=== PATIENT | male | born 1995 | race Caucasian/White ===

== ENCOUNTER → 2017-09-24 12:59 | Outpatient (CLI) | payer OTHER, SELFPAY ==
--- NOTE | 2017-09-24 13:10 | XR_ITS ---
XR chest 2V HISTORY: ITS.REASON: chest pressure ORDERING PHYSICIAN: You Dodd MD PATIENT AGE: 22 years COMPARISON: 10/31/2016 FINDINGS: The cardiomediastinal silhouette and pulmonary vascularity are within normal limits. There is some increased density along the injury aspect of the chest inferiorly similar to 10/31/2016 and may represent some pleural thickening The lungs are clear without infiltrates, suspicious nodules, or pleural effusions. No acute bony abnormalities. IMPRESSION: No change with no acute finding
== END ==
PROVIDERS: Visit Provider Internal Medicine
DX: R00.0 Tachycardia, unspecified (principal)
CPT/HCPCS: 71046

== ENCOUNTER → 2018-08-05 12:23 | Outpatient (CLI) | payer OTHER, SELFPAY ==
--- NOTE | 2018-08-05 12:27 | CA_ITS ---
PROCEDURE: 2-D M-mode and color Doppler study INDICATIONS FOR THE TEST: Chest pain + COPD Heart Murmur Tobacco Smoking+ Palpitations Fatigue Syncope Edema Hypertension Diabetes Mellitus Rheumatic Fever SOB+GODOY Obesity Hyperlipidemia Family History HD Additional History PERICARDIECTOMY 10/2015 PATIENT INFORMATION HEIGHT: 72 WEIGHT:196 GENDER: Male B/P:131/84 2-D/M-MODE INTERPRETATION: 2-D MEASUREMENTS OBSERVED VALUES IN CMS Right Ventricular Dimension (RVDd) 2.4 Interventricular Septum (Thickness)(IVsd) 0.6 Left Ventricular Internal Dimensions(LVIDd) 5.8 Left Ventricular Posterior Wall (Thickness)(LVPWd) 0.8 Aortic Root 2.5 Aortic Cusp Separation 2.0 Left Atrial Dimensions (LAD) 3.0 2D 1. Left atrium is normal size, left ventricle is normal size, there is no concentric left ventricular hypertrophy, visually estimated ejection fraction is normal 55%. 2. Right atrium and right ventricle are normal size and contractility. 3. The aortic, mitral and tricuspid valvular grossly normal. 4. The pulmonic valve is poorly visualized. 5. No significant pericardial effusion noted. DOPPLER INTERROGATION: Doppler interrogation of the aortic, mitral and tricuspid valvular presence of mild mitral and tricuspid regurgitation, tricuspid regurgitation jet velocity is inadequate for calculation of the right ventricular systolic pressure, diastolic parameters are within normal range. Inferior vena cava is not well visualized. CONCLUSION: 1. Normal left ventricular size, preserved left ventricular systolic function, visually estimated ejection fraction 55% with no regional wall motion abnormality, diastolic parameters are within normal range. 2. Mild mitral and tricuspid regurgitation 3. No significant pericardial effusion noted.
== END ==
PROVIDERS: Visit Provider Physician Assistant
DX: R06.02 Shortness of breath (principal); R07.9 Chest pain, unspecified; Z98.890 Other specified postprocedural states
CPT/HCPCS: 93306

== ENCOUNTER 2020-06-01 17:10 | Emergency (ER) | payer OTHER, SELFPAY ==
--- NOTE | 2020-06-01 17:05 | ECG_ITS ---
APPROVED REPORT Exam: Resting ECG HR:91 bpm ECG Measurements Heart Rate 91 AXES MD 112 P 53 QRSd 78 QRS 57 QT 342 T 53 QTc 420 Conclusion Sinus rhythm with marked sinus arrhythmia with junctional escape complexes Otherwise normal ECG Electronically signed by : Clarence Olson, 06/02/2020 17:32:04
[2020-06-01 17:11] VITALS: BP 126/80; PULSE 111; RESP 16; TEMP 37.1; O2SAT 100; BMI 22.1
--- NOTE | 2020-06-01 17:15 | XR_ITS ---
PROCEDURE: XR CHEST PORTABLE CLINICAL HISTORY: soa Shortness of air COMPARISON: CR CXR2V XR chest 2V from 09/24/2017 CR CXR2V XR chest 2V from 03/14/2018 CR XR CHEST 2V from 01/01/[address] ANGIO CHEST from 01/01/2019 FINDINGS: The cardiomediastinal silhouette and pulmonary vascularity are within normal limits. There is minimal blunting of the left CP angle. No acute infiltrates apparent.. No acute bony abnormalities. IMPRESSION: Minimal blunting of the left CP angle which could be due to small effusion. Dictated by: Francisco Javier Oneal MD 06/01/2020 18:03 Francisco Javier Oneal MD in [place] 06/01/2020 18:03
[2020-06-01 17:18] VITALS: BP 127/72; PULSE 84; RESP 20; O2SAT 100
--- NOTE | 2020-06-01 17:32 | HMH.EDCP ---
ED Disposition Clinical Impression: Atypical chest pain, Pre-syncope Disposition: Home, Self-Care Condition on Discharge: Good Referrals: PCP,No [Primary Care Provider] - - Critical Care Critical Care Time: No Attestation: On 06/01/20, the high probability of a clinically significant, sudden or life threatening deterioration of the following system(s) required my full and direct attention, intervention and personal management. The time I documented below is in addition to time spent performing reported procedures but includes the following listed in this critical care notation. Medical Decision Making - Medical Records Medical records reviewed: Yes: I reviewed the patient's medical records. - Lizandro Inquiry Pt receiving controlled substance: No Vital Signs: 06/01/20 17:11 06/01/20 17:18 Temperature 98.7 F Temperature Source Oral Pulse Rate 84 Pulse Rate [Left Radial] 111 H Respiratory Rate 16 20 Blood Pressure 127/72 Blood Pressure [Right Arm] 126/80 Blood Pressure Mean [Right Arm] 95 Blood Pressure Source Automatic Cuff Blood Pressure Source [Right Arm] Automatic Cuff Blood Pressure Position Sitting Blood Pressure Position [Right Arm] Sitting 02 Sat by Pulse Oximetry 100 100 Oxygen Delivery Method Room Air Room Air - Lab Data Lab Results 06/01/20 17:13: WBC 12.3 H, RBC 5.14, Hgb 15.3, Hct 45.7, MCV 88.9, MCH 29.8, MCHC 33.5, RDW 12.4, Plt Count 227, MPV 8.4, Neut % (Auto) 58.8, Lymph % (Auto) 30.8, Foard % (Auto) 7.8, Eos % (Auto) 1.9, Baso % (Auto) 0.7, Neut # (Auto) 7.2, Lymph # (Auto) 3.8, Foard # (Auto) 1.0, Eos # (Auto) 0.2, Baso # (Auto) 0.1 06/01/20 17:13: D-Dimer 0.51 H 06/01/20 17:13: Sodium 138, Potassium 3.9, Chloride 103, Carbon Dioxide 24, Anion Gap 14.9, BUN 12, Creatinine 0.90, Estimated Creat Clear 123, Estimated GFR 105, Est GFR ( Amer) 127, Glucose 105 H, Calcium 10.0, Troponin I < 0.01 Result diagrams: 06/01/20 17:13 06/01/20 17:13 Orders (Tests/Meds): ED MEDICATIONS Generic Name Dose Route Start Last Admin Trade Name Freq PRN Reason Stop Dose Admin Sodium Chloride 1,000 mls @ 999 mls/hr 06/01/20 17:15 06/01/20 17:31 Sod Chlor 0.9% 1000ml Bag IV 06/01/20 18:15 999 mls/hr .Q1H1M ANA Administration ORDERS Category Date Time Status Troponin I Q3H Lab 06/01/20 20:15 Ordered Troponin I Q3H Lab 06/01/20 23:15 Ordered Medical Decision Narrative: 24-year-old male presents after presyncopal event. He is in no acute distress nontoxic-appearing comfortable in the bed with normal neurological exam. Very atypical for myocardial infarction EKG shows no evidence of ischemia. No evidence of hypertrophic cardiomyopathy, preexcitation, Brugada or prolonged QT. He is PERC positive with tachycardia however otherwise low risk for pulmonary embolism D-dimer obtained. Atypical presentation for aortic dissection. Chest x-ray and labs have been ordered giving IV fluids as well Patient feeling better after IV fluids. Negative per years criteria for pulmonary embolism. Chest x-ray otherwise without large pneumothorax or pneumonia. Bedside ultrasound performed that showed no pericardial effusion ejection fraction was normal. Patient otherwise stable for discharge with return precautions Chest Pain HPI - General Chief Complaint: Chest Pain Stated Complaint: chest pain Time Seen by Provider: 06/01/20 17:15 Mode of Arrival: Ambulatory Limitations: No Limitations Description of Symptoms (Recalled from ER Triage Doc. 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 States he became soa and sweaty and started with chest pain - History of Present Illness HPI narrative: 24 yo Male presents with sudden onset dizziness nausea chest pain. He says he was working in the back of the truck got hot and felt dizzy. He then had left-sided nonradiating chest pain. Was not severe or radiating to his back. He did not
[2020-06-01 17:39] LABS: Basophils # 0.1 K/mm3 (0-0.2); Basophils % 0.7 % (0.1-2.0); Chloride 103 mmol/L (98-107); Eosinophils # 0.2 K/mm3 (0.0-0.4); Eosinophils % 1.9 % (0.1-12.0); Hematocrit 45.7 % (42.0-52.0); Hemoglobin 15.3 g/dL (14.1-18.0); Lymphocytes # 3.8 K/mm3 (0.7-4.5); Lymphocytes % 30.8 % (10-50); Mean Corpuscular HGB Conc 33.5 g/dL (31.8-35.4); Mean Corpuscular Hemoglobin 29.8 pg (27.0-31.2); Mean Corpuscular Volume 88.9 fl (80-94); Mean Platelet Volume 8.4 fl (7.4-10.4); Monocytes % 7.8 % (1.7-9.3); Neutrophils # 7.2 K/mm3 (1.8-7.8); Neutrophils % 58.8 % (37.0-80.0); Platelet Count 227 K/mm3 (142-424); Potassium 3.9 mmoL/L (3.5-5.1); Red Blood Count 5.14 M/mm3 (4.60-6.20); Red Cell Distribution Width 12.4 % (11.5-17.5); Sodium 138 mmol/L (136-145); White Blood Count 12.3 K/mm3 (4.8-10.8)
[2020-06-01 17:42] LABS: Anion Gap 14.9 mEq/L (5-15); Blood Urea Nitrogen 12 mg/dl (9-20); Carbon Dioxide 24 mmol/L (22.0-30.0); Creatinine Clearance Estimated 123 mL/min (50-200); Estimated Glomerular Filt Rate 105 ml/min (>60); GFR (African American) 127 ML/MIN (>60)
[2020-06-01 17:43] LABS: Glucose 105 mg/dl (74-100)
[2020-06-01 17:57] LABS: Troponin I < 0.01 ng/ml (0.00-0.034)
[2020-06-01 18:00] VITALS: BP 124/67; PULSE 81; O2SAT 98
[2020-06-01 18:08] LABS: D-Dimer 0.51 ug/mL (0.0-0.5)
[2020-06-01 18:30] VITALS: BP 118/75; PULSE 66; O2SAT 99
[2020-06-01 18:48] VITALS: BP 118/75; PULSE 66; RESP 18; TEMP 37.1; O2SAT 99
== END 2020-06-01 18:49 | disposition home or self-care (01) ==
PROVIDERS: Emergency Provider Emergency Medicine
DX: R07.89 Other chest pain (principal); R55 Syncope and collapse; I10 Essential (primary) hypertension; F17.210 Nicotine dependence, cigarettes, uncomplicated
CPT/HCPCS: 71045; 80048; 84484; 85025; 85378; 93005; 96365; 99282

== ENCOUNTER 2021-01-28 16:39 | Emergency (ER) | payer OTHER, SELFPAY ==
[2021-01-28 16:40] VITALS: BP 112/71; PULSE 75; RESP 16; TEMP 36.6; O2SAT 97; BMI 23.7
--- NOTE | 2021-01-28 17:20 | HMH.EDWNDL ---
ED Disposition Clinical Impression: Closed head injury Qualifiers: Encounter type: initial encounter Qualified Code(s): S09.90XA - Unspecified injury of head, initial encounter Scalp abrasion Qualifiers: Encounter type: initial encounter Qualified Code(s): S00.01XA - Abrasion of scalp, initial encounter Disposition: Home, Self-Care Condition on Discharge: Good Instructions: DI for Closed Head Injury Referrals: Provider,Referral, MD [Primary Care Provider] - - Critical Care Critical Care Time: No Attestation: On 01/28/21, the high probability of a clinically significant, sudden or life threatening deterioration of the following system(s) required my full and direct attention, intervention and personal management. The time I documented below is in addition to time spent performing reported procedures but includes the following listed in this critical care notation. Medical Decision Making - Medical Records Medical records reviewed: Yes: I reviewed the patient's medical records. - Lizandro Inquiry Pt receiving controlled substance: No Vital Signs: 01/28/21 16:40 Temperature 98 F Temperature Source Oral Pulse Rate [Radial] 75 Respiratory Rate 16 Blood Pressure [Right Arm] 112/71 Blood Pressure Mean [Right Arm] 84 02 Sat by Pulse Oximetry 97 Oxygen Delivery Method Room Air Medical Decision Narrative: 25-year-old male presenting with a small abrasion to the top of his head. There is no active bleeding at this time. Patient does not require suture or staple repair. Does not meet imaging criteria for the head or cervical spine. Symptoms consistent with closed head injury. Patient to follow-up with PCP in 48 hours. Given strict return precautions. Verbalized understanding. 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 by RN): to ed per pvt car states a post hole driver license examiner fell on head. denies any loc. pt alert and oriented x 3. superficial lac noted to top of scalp parietal area. denies nausea, vomiting, dizziness - History of Present Illness HPI narrative: Is a 25-year-old male presented to the emergency department with a laceration to his scalp. The patient states that he was using a post acute care registered nurse when it fell and hit him on the head. On the top of his head. He had some bleeding instantly afterwards. The patient did not lose consciousness during the event. He placed some pressure dressing and the bleeding did stop. Patient planing of some mild headache. Denies any change in vision or focal weakness. No chest pain or shortness of breath. Abdominal pain or vomiting. No diarrhea. No neck pain. No other injuries were sustained. Patient is up-to-date on tetanus. - Related Data Previous Rx's Medication Instructions Recorded Mupirocin [Bactroban 2% Ointment 1 applicatio TP TID 7 Days #1 tube 09/23/18 22gm tube] cephALEXin [cephALEXin 500mg 500 mg PO Q6H 10 Days #40 cap 09/23/18 capsule] Diclofenac Sodium [Diclofenac 75mg 75 mg PO BID 10 Days #20 tab 01/01/19 Tab] predniSONE [Prednisone 20mg 20 mg PO BID 5 Days #10 tab 01/01/19 Tab] Allergies Allergy/AdvReac Type Severity Reaction Status Date / Time No Known Allergies Allergy Verified 08/05/18 11:27 [facility] History - Hepatitis A Screen Drug use history?: No High risk sexual behaviors?: No History of sexually transmitted infection?: No Currently employed?: No Childcare worker?: No Do you have indoor plumbing?: Yes Do you have electricity?: Yes Attestation statement:: This patient has been screened for Hepatitis A risk factors. I have reviewed the patient's past medical history: Yes Medical History: Reports:: Hypertension Denies:: Cancer, Diabetes Mellitus Type 1, Diabetes Mellitus Type 2
[2021-01-28 17:31] VITALS: BP 121/74; PULSE 78; RESP 16; TEMP 36.6; O2SAT 98
== END 2021-01-28 17:32 | disposition home or self-care (01) ==
PROVIDERS: Emergency Provider Emergency Medicine
DX: S00.01XA Abrasion of scalp, initial encounter (principal); F17.210 Nicotine dependence, cigarettes, uncomplicated; W22.8XXA Striking against or struck by other objects, initial encounter; Y92.89 Other specified places as the place of occurrence of the external cause
CPT/HCPCS: 99281

== ENCOUNTER 2021-05-22 22:37 | Emergency (ER) | payer OTHER, SELFPAY ==
--- NOTE | 2021-05-22 22:35 | ECG_ITS ---
APPROVED REPORT Exam: Resting ECG HR:100 bpm ECG Measurements Heart Rate 100 AXES MI 124 P 45 QRSd 84 QRS 37 QT 325 T 24 QTc 382 Conclusion SINUS TACHYCARDIA ABNORMAL RHYTHM ECG UNCONFIRMED REPORT Electronically signed by : Clarence Olson MD 05/25/2021 16:21:17
[2021-05-22 22:37] VITALS: BP 145/92; PULSE 93; RESP 18; TEMP 36.9; O2SAT 99; BMI 24.4
--- NOTE | 2021-05-22 22:44 | XR_ITS ---
PROCEDURE INFORMATION: Exam: XR Chest Exam date and time: 05/22/2021 10:46 PM Age: 25 years old Clinical indication: Pain; Left-sided; Prior surgery; Surgery type: Heart SX 5 years ago; Additional info: Chest pain TECHNIQUE: Imaging protocol: XR of the chest. Views: 2 views. COMPARISON: CR XR CHEST PORTABLE 06/01/2020 5:26 PM FINDINGS: Lungs: Unremarkable. No consolidation. Pleural spaces: No pleural effusion. No pneumothorax. Heart/Mediastinum: Normal heart size. Bones/joints: Unremarkable. IMPRESSION: No acute findings.
[2021-05-22 22:52] LABS: Basophils # 0.3 K/mm3 (0-0.2); Basophils % 2.4 % (0.1-2.0); Eosinophils # 0.2 K/mm3 (0.0-0.4); Eosinophils % 1.6 % (0.1-12.0); Hemoglobin 15.3 g/dL (14.1-18.0); Lymphocytes # 3.4 K/mm3 (0.7-4.5); Lymphocytes % 29.1 % (10-50); Mean Corpuscular HGB Conc 33.3 g/dL (31.8-35.4); Mean Corpuscular Hemoglobin 30.6 pg (27.0-31.2); Mean Platelet Volume 8.7 fl (7.4-10.4); Monocytes # 0.9 K/mm3 (0.1-1.0); Monocytes % 7.5 % (1.7-9.3); Neutrophils # 6.9 K/mm3 (1.8-7.8); Neutrophils % 59.5 % (37.0-80.0); Platelet Count 235 K/mm3 (142-424); Red Cell Distribution Width 12.8 % (11.5-17.5); White Blood Count 11.6 K/mm3 (4.8-10.8)
--- NOTE | 2021-05-22 22:52 | PC.NURSE ---
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
[2021-05-22 23:00] VITALS: BP 134/84; PULSE 96; RESP 27; O2SAT 97
[2021-05-22 23:02] LABS: Alanine Aminotransferase 21 U/L (12-78); Albumin Level 4.6 g/dl (3.5-5.0); Alkaline Phosphatase 48 U/L (38-126); Anion Gap 12.9 mEq/L (5-15); Aspartate Amino Transferase 33 U/L (17-59); Bilirubin,Direct 0.2 mg/dl (0.0-0.4); Bilirubin,Indirect 0.5 mg/dL (0.0-0.9); Bilirubin,Total 0.7 mg/dl (0.2-1.3); Bilirubin,Unconjugated 0.5 mg/dL (0.0-1.1); Blood Urea Nitrogen 16 mg/dl (9-20); Calcium 9.2 mg/dl (8.4-10.2); Carbon Dioxide 26 mmol/L (22.0-30.0); Chloride 103 mmol/L (98-107); Creatinine Clearance Estimated 146 mL/min (50-200); Estimated Glomerular Filt Rate 104 ml/min (>60); GFR (African American) 125 ML/MIN (>60); Glucose 121 mg/dl (74-100); Lipase 56 U/L (23-300); Potassium 3.9 mmoL/L (3.5-5.1); Sodium 138 mmol/L (136-145); Total Protein,Serum 7.7 g/dl (6.3-8.2)
[2021-05-22 23:19] LABS: Procalcitonin 0.043 ng/mL (0.0-2.0)
[2021-05-22 23:26] LABS: Troponin I < 0.01 ng/ml (0.00-0.034)
[2021-05-22 23:30] VITALS: BP 143/82; PULSE 101; RESP 20; O2SAT 97
[2021-05-22 23:30] LABS: Erythrocyte Sedimentation Rate 30 mm/hr (0-15)
[2021-05-22 23:32] LABS: C-Reactive Protein 37.5 mg/L (0-4)
--- NOTE | 2021-05-22 23:35 | HMH.EDCP ---
ED Disposition Clinical Impression: Chest pain Qualifiers: Chest pain type: unspecified Qualified Code(s): R07.9 - Chest pain, unspecified Disposition: Home, Self-Care Condition on Discharge: Good Instructions: DI for Atypical Chest Pain Additional Instructions: see pcp for follow up Referrals: Provider,Referral, [Primary Care Provider] - - Critical Care Critical Care Time: No Attestation: On 05/22/21, the high probability of a clinically significant, sudden or life threatening deterioration of the following system(s) required my full and direct attention, intervention and personal management. The time I documented below is in addition to time spent performing reported procedures but includes the following listed in this critical care notation. Medical Decision Making - Medical Records Medical records reviewed: Yes: I reviewed the patient's medical records. - Lizandro Inquiry Pt receiving controlled substance: No Vital Signs: 05/22/21 22:37 05/22/21 23:00 05/22/21 23:30 Temperature 98.4 F Temperature Source Oral Pulse Rate 96 H 101 H Pulse Rate [Left Radial] 93 H Respiratory Rate 18 27 H 20 Blood Pressure 134/84 143/82 H Blood Pressure [Right Arm] 145/92 H Blood Pressure Mean [Right Arm] 109 Blood Pressure Position [Right Arm] Sitting 02 Sat by Pulse Oximetry 99 97 97 Oxygen Delivery Method Room Air Room Air Room Air 05/23/21 00:00 Temperature Temperature Source Pulse Rate 90 Pulse Rate [Left Radial] Respiratory Rate 23 Blood Pressure 131/79 Blood Pressure [Right Arm] Blood Pressure Mean [Right Arm] Blood Pressure Position [Right Arm] 02 Sat by Pulse Oximetry 96 Oxygen Delivery Method Room Air - Lab Data Lab results reviewed: Yes: I reviewed the patient's lab results. Lab Results 05/22/21 20:41: WBC 11.6 H, RBC 5.00, Hgb 15.3, Hct 46.0, MCV 92.0, MCH 30.6, MCHC 33.3, RDW 12.8, Plt Count 235, MPV 8.7, Neut % (Auto) 59.5, Lymph % (Auto) 29.1, Miner % (Auto) 7.5, Eos % (Auto) 1.6, Baso % (Auto) 2.4 H, Neut # (Auto) 6.9, Lymph # (Auto) 3.4, Miner # (Auto) 0.9, Eos # (Auto) 0.2, Baso # (Auto) 0.3 H 05/22/21 20:41: ESR 30 H 05/22/21 20:41: Sodium 138, Potassium 3.9, Chloride 103, Carbon Dioxide 26, Anion Gap 12.9, BUN 16, Creatinine 0.90, Estimated Creat Clear 146, Estimated GFR 104, Est GFR ( Amer) 125, Glucose 121 H, Calcium 9.2, Total Bilirubin 0.7, Direct Bilirubin 0.2, Conjugated Bilirubin 0.0, Indirect Bilirubin 0.5, Unconjugated Bilirubin 0.5, AST 33, ALT 21, Alkaline Phosphatase 48, Troponin I < 0.01, Total Protein 7.7, Albumin 4.6, Procalcitonin 0.043 05/22/21 20:41: Lipase 56 05/22/21 20:41: C-Reactive Protein 37.5 H Result diagrams: 05/22/21 20:41 05/22/21 20:41 Orders (Tests/Meds): ED MEDICATIONS Discontinued Medications Generic Name Dose Route Start Last Admin Trade Name Marlo PRN Reason Stop Dose Admin Aspirin 324 mg 05/22/21 22:46 05/22/21 22:52 Aspirin 81mg Chewable Tablet PO 05/22/21 22:47 324 mg ONCE ONE Administration Iopamidol 70 ml 05/22/21 23:56 05/22/21 23:57 Iopamidol-370 (76%);100ml Bottle IV 05/22/21 23:57 70 ml ONCE ONE Administration Ketorolac Tromethamine 30 mg 05/22/21 22:54 05/22/21 23:01 Ketorolac 30mg/Ml Vial IV 05/22/21 22:55 30 mg ONCE ONE Administration Methylprednisolone Sodium Succinate 125 mg 05/22/21 22:54 05/22/21 23:01 Methylprednisolone Sod Succ 125mg Vial IV 05/22/21 22:55 125 mg ONCE ONE Administration Sodium Chloride 50 ml 05/22/21 23:56 05/22/21 23:57 0.9 % Sodium Chloride 50 Ml Vial IV 05/22/21 23:57 50 ml ONCE ONE Administration Sodium Chloride 10 ml 05/22/21 23:56 05/22/21 23:57 Sodium Chloride 0.9% 10ml Syr (Rad Only) IV 05/22/21 23:57 10 ml ONCE ONE Administration ORDERS Category Date Time Status Troponin I Q3H Lab 05/23/21 01:45 Ordered Troponin I Q3H Lab 05/23/21 04:45 Ordered - Radiology Data #1 Image(s): Ch
--- NOTE | 2021-05-22 23:37 | CT_ITS ---
PROCEDURE INFORMATION: Exam: CTA Chest With Contrast Exam date and time: 05/22/2021 11:47 PM Age: 25 years old Clinical indication: Pain; Shortness of breath; Left-sided; Prior surgery; Additional info: R/O pe TECHNIQUE: Imaging protocol: Computed tomographic angiography of the chest with contrast. 3D rendering (Not supervised by radiologist): MIP and/or 3D reconstructed images were created by the technologist. Radiation optimization: All CT scans at this facility use at least one of these dose optimization techniques: automated exposure control; mA and/or kV adjustment per patient size (includes targeted exams where dose is matched to clinical indication); or iterative reconstruction. Contrast material: ISOVUE; Contrast volume: 70 ml; Contrast route: INTRAVENOUS (IV); COMPARISON: CT ANGIO CHEST 01/01/2019 5:35 PM FINDINGS: Pulmonary arteries: No pulmonary embolus is seen. Artifactual heterogeneity of left lower lobe subsegmental arteries due to motion. Aorta: No thoracic aortic aneurysm. Lungs: Mild dependent atelectasis at the left lung base. No consolidation. No evidence of pneumonia. Calcified right lower lobe granuloma. There are a few scattered noncalcified nodules in the right lower lobe measuring up to 0.4 cm in size, stable since prior exam and presumed benign. No follow-up recommended. Pleural spaces: No pneumothorax. No pleural effusion. Heart: Heart size within normal limits. Trace pericardial fluid without significant effusion. No appreciable coronary calcification. Lymph nodes: Few calcified right hilar and subcarinal lymph nodes compatible with prior granulomatous disease. No frankly enlarged mediastinal lymph nodes by CT criteria. Bones/joints: Posterior disc-osteophyte ridge at T11-T12 with associated mild spinal canal and neural foraminal stenosis. No acute fracture. Soft tissues: Unremarkable. IMPRESSION: 1. No evidence of pulmonary embolus. 2. Mild left basilar atelectasis. Otherwise, no acute finding within the thorax.
[2021-05-23] VITALS: BP 131/79; PULSE 90; RESP 23; O2SAT 96
[2021-05-23 00:30] VITALS: BP 123/77; PULSE 88; RESP 22; O2SAT 97
--- NOTE | 2021-05-23 00:56 | PC.NURSE ---
PT REPORTS THAT HIS PAIN HAS IMPROVED. FAMILY REMAINS AT BEDSIDE. WCM.
[2021-05-23 01:00] VITALS: BP 128/77; PULSE 82; RESP 22; O2SAT 96
[2021-05-23 01:30] VITALS: BP 126/73; PULSE 75; RESP 23; O2SAT 97
[2021-05-23 01:41] VITALS: BP 125/77; PULSE 87; RESP 18; TEMP 36.7; O2SAT 96
== END 2021-05-23 01:46 | disposition home or self-care (01) ==
PROVIDERS: Emergency Provider Emergency Medicine
DX: R07.9 Chest pain, unspecified (principal); R06.02 Shortness of breath; I10 Essential (primary) hypertension; F17.210 Nicotine dependence, cigarettes, uncomplicated; Z79.52 Long term (current) use of systemic steroids; Z79.82 Long term (current) use of aspirin; Z79.899 Other long term (current) drug therapy; Z82.49 Family history of ischemic heart disease and other diseases of the circulatory system; Z81.2 Family history of tobacco abuse and dependence
CPT/HCPCS: 71046; 71275; 80048; 80076; 83690; 84145; 84484; 85025; 85651; 86140; 93005; 96374; 96375; 99285; Q9967

== ENCOUNTER 2021-06-23 08:25 | Emergency (ER) | payer OTHER, SELFPAY ==
[2021-06-23 08:26] VITALS: BP 146/74; PULSE 89; RESP 20; TEMP 36.8; O2SAT 96; BMI 27.1
--- NOTE | 2021-06-23 08:37 | XR_ITS ---
FINAL REPORT CLINICAL HISTORY: foot pain, struck log. dorsal foot pain. pt shielded. FINDINGS: RIGHT FOOT Three views were obtained. There is no acute fracture or dislocation. The joint spaces appear normal. No soft tissue abnormality is identified. There is an os peroneum. IMPRESSION: No acute process. Reviewed, Interpreted and Dictated by Mitch Arnold MD Transcribed by Mariel Stockton Authenticated by Mitch Arnold MD on 06/23/2021 10:01:02 AM [facility]
--- NOTE | 2021-06-23 08:41 | HMH.EDGENADL ---
ED Disposition Clinical Impression: Foot contusion Qualifiers: Encounter type: initial encounter Laterality: right Qualified Code(s): S90.31XA - Contusion of right foot, initial encounter Disposition: Home, Self-Care Condition on Discharge: Good Additional Instructions: Okay to take Tylenol, Motrin at home for pain. Bear weight as able, okay to use crutches to assist with ambulation. Return with new or concerning symptoms. Follow-up with your PCP. Referrals: Provider,Referral, [Primary Care Provider] - - Critical Care Critical Care Time: No Attestation: On 06/23/21, the high probability of a clinically significant, sudden or life threatening deterioration of the following system(s) required my full and direct attention, intervention and personal management. The time I documented below is in addition to time spent performing reported procedures but includes the following listed in this critical care notation. Medical Decision Making - Medical Records Medical records reviewed: Yes: I reviewed the patient's medical records. - Lizandro Inquiry Pt receiving controlled substance: No Vital Signs: 06/23/21 08:26 Temperature 98.2 F Temperature Source Oral Pulse Rate [Left Radial] 89 Respiratory Rate 20 Blood Pressure [Right Arm] 146/74 H Blood Pressure Mean [Right Arm] 98 Blood Pressure Source [Right Arm] Automatic Cuff Blood Pressure Position [Right Arm] Sitting 02 Sat by Pulse Oximetry 96 Oxygen Delivery Method Room Air Orders (Tests/Meds): ED MEDICATIONS Discontinued Medications Generic Name Dose Route Start Last Admin Trade Name Freq PRN Reason Stop Dose Admin Acetaminophen 1,000 mg 06/23/21 08:38 06/23/21 08:47 Acetaminophen 500mg Tab PO 06/23/21 08:39 1,000 mg ONCE ONE Administration Ibuprofen 400 mg 06/23/21 08:39 06/23/21 08:47 Ibuprofen 400 Mg Tablet PO 06/23/21 08:40 400 mg ONCE ONE Administration - Radiology Data #1 Image(s): Foot/Toes Image Reviewed: Yes I reviewed the patient's radiology results FINDINGS: RIGHT FOOT Three views were obtained. There is no acute fracture or dislocation. The joint spaces appear normal. No soft tissue abnormality is identified. There is an os peroneum. IMPRESSION: No acute process. Reviewed, Interpreted and Dictated by Mitch Arnold MD Transcribed by Mariel Stockton Authenticated by Mitch Arnold MD on 06/23/2021 10:01:[address] [facility] Medical Decision Narrative: 25-year-old male no prior past medical history presenting to the ED with right foot pain. Differential diagnoses include fracture/dislocation, sprain, metatarsal fracture, contusion, abrasion, Caban fracture. Given this work-up will include x-rays of the right foot. Labs, further imaging studies not currently indicated. Tylenol Motrin for pain. On exam patient has palpable DP/PT pulses, neurovascularly intact, mildly limited flexion and extension of the foot due to pain. X-ray of the right foot with no osseous abnormalities. Patient is able to bear weight however has pain with this, this point he is okay for discharge. Suspect contusion as the etiology of his pain, he was discharged with crutches. Discussed return precautions, he was amenable to this plan. General Adult HPI - General Stated complaint: AO fall 06/22 rt ankle pain Time Seen by Provider: 06/23/21 08:41 Mode of Arrival: Ambulatory Source of Information: Patient, Significant Other Limitations: No Limitations - History of Present Illness HPI narrative: 25-year-old male no prior past medical history who is presenting to the ED with right foot pain. Patient was chasing his dog last night when he accidentally ran into a log. He did not hit his head, no LOC. He does not take anything today for pain medication. He states that the dorsal aspect of his right foot is slightly swollen, he is tender over his fifth metatarsal and forefoot. He does not have any pain in his right
[2021-06-23 10:50] VITALS: BP 132/74; PULSE 78; RESP 16; TEMP 36.6; O2SAT 98
== END 2021-06-23 10:51 | disposition home or self-care (01) ==
PROVIDERS: Emergency Provider Emergency Medicine
DX: S90.31XA Contusion of right foot, initial encounter (principal); W01.198A Fall on same level from slipping, tripping and stumbling with subsequent striking against other object, initial encounter; I10 Essential (primary) hypertension; Z72.0 Tobacco use; F12.90 Cannabis use, unspecified, uncomplicated; Z86.79 Personal history of other diseases of the circulatory system
CPT/HCPCS: 73630; 99283

== ENCOUNTER 2021-12-01 09:30 | Emergency (ER) | payer OTHER, SELFPAY ==
--- NOTE | 2021-12-01 09:55 | XR_ITS ---
FINAL REPORT CLINICAL HISTORY: punched a truck FINDINGS: RIGHT HAND: 3 views of the right hand were obtained. There is no acute fracture or dislocation. Visualized joint spaces are normally aligned. There is dorsal hand soft tissue swelling. IMPRESSION: No acute bony abnormality. Reviewed, Interpreted and Dictated by Jose Zuluaga III, MD Transcribed by Kiya Reynoso Authenticated and [facility]
[2021-12-01 09:58] VITALS: BP 131/63; PULSE 80; RESP 16; TEMP 36.7; O2SAT 98; BMI 25.0
--- NOTE | 2021-12-01 10:13 | EXP.UTC ---
Discharge Plan Disposition Patient Disposition: Home, Self-Care Condition: Good Prescriptions Prescriptions: New ibuprofen [IBU] 800 mg tablet 800 mg PO Q8HP PRN (Reason: Moderate Pain) Qty: 30 0RF No Action cephalexin 500 MG capsule 500 mg PO Q6H 10 Days Qty: 40 0RF mupirocin 22 GM ointment 1 applicatio TP TID 7 Days Qty: 1 0RF prednisone 20 MG tablet 20 mg PO BID 5 Days Qty: 10 0RF diclofenac sodium 75 MG tablet,delayed release (DR/EC) 75 mg PO BID 10 Days Qty: 20 0RF Referrals Follow up/Referrals: Tee Jade MD [Staff Physician] - See instructions Provider,MD Fredy [Primary Care Provider] - See instructions Activity Restrictions/Add. Instructions Additional Instructions/Restrictions: Rest the extremity, apply ice for 15 minutes as tolerated three or four times per day, Wear the iris wrap for compression, Elevate the extremity as tolerated while you are resting. Take ibuprofen for pain. I sent in a prescription to your pharmacy. Follow up with Dr. Jade (orthopedics). Sometimes there can be fractures that don't show up well on the first set of x-rays. I put in a referral but you need to call his office and schedule an appointment. Follow up with your regular doctor. GO TO THE ER FOR ANY WORSENING SYMPTOMS Clinical Impressions Clinical Impression: Injury of hand, right, Striking against other stationary object, initial encounter Stand Alone Forms Stand Alone Forms: Work/School Release Instructions Patient Instructions: DI for Hand Injury Discharge ED Provider: Severo Guan [facility] General Stated complaint: RT hand pain, punched truck 12/01/21 9:00am Mode of Arrival: Ambulatory Source of Information: Patient Limitations: No Limitations Time Seen by Provider: 12/01/21 10:13 Description of Symptoms (Recalled from Triage Doc. by RN): pt comes in with right hand pain. pt punched a truck this am and now has a large knot on hand and is having pain. HEENT Symptoms (Recalled from RN notes): No Resp Symptoms (Recalled from RN notes): No Skin Symptoms (Recalled from RN notes): No MS Symptoms (Recalled from RN notes): Yes Functional Status (Recalled from RN notes): n/a History of Present Illness Provider Complaint: He states that he punched the side of his truck with his right hand this morning out of anger. he has had right hand pain since then. He denies any other injury. Related Data Previous Rx's Medication Instructions Recorded cephalexin 500 mg capsule 500 mg PO Q6H 10 days #40 caps 09/23/18 mupirocin 2 % topical ointment 1 applicatio TP TID 7 days #1 tube 09/23/18 diclofenac sodium 75 mg 75 mg PO BID 10 days #20 tabs 01/01/19 tablet,delayed release prednisone 20 mg tablet 20 mg PO BID 5 days #10 tabs 01/01/19 ibuprofen 800 mg tablet (IBU) 800 mg PO Q8HP PRN Moderate Pain 12/01/21 #30 tabs Allergies Allergy/AdvReac Type Severity Reaction Status Date / Time No Known Allergies Allergy Verified 12/01/21 10:01 Worker's Comp Is this a Worker's Comp case?: No PFSH PFSH Medical History Chest pain SOB (shortness of breath) Social History Smoking Status: Current every day smoker tobacco type: cigarettes packs per day: 1 second hand exposure: Yes alcohol intake: never substance use type: marijuana current occupational status: employed Travel in the last 8 weeks: None household members: significant other housing: house current occupation: [email or web address] current occupational exposures/hazards: No caffeine: Yes ROS Obtained: Yes All systems reviewed & no additional complaints except as documented Constitutional Constitutional: Denies chills and Denies fever(s) Integumentary/Breasts Skin/Breast: Denies redness, Denies rash and Denies wounds Neurologic Neurologic: Denies paresthesias Physical Exam General General appearance:
[2021-12-01 11:26] VITALS: BP 131/63; PULSE 80; RESP 16; TEMP 36.7
== END 2021-12-01 11:27 | disposition home or self-care (01) ==
PROVIDERS: Emergency Provider Nurse Practitioner Family
DX: S67.21XA Crushing injury of right hand, initial encounter (principal); R22.9 Localized swelling, mass and lump, unspecified; W22.09XA Striking against other stationary object, initial encounter
CPT/HCPCS: 73130; 99212; G0463

== ENCOUNTER 2024-01-27 18:09 | Emergency (ER) | payer MEDICAID, SELFPAY ==
[2024-01-27 18:40] VITALS: BP 124/74; PULSE 64; RESP 17; TEMP 36.9; O2SAT 98; BMI 28.0
--- NOTE | 2024-01-27 19:03 | ED_ITS ---
Discharge Plan Disposition Patient Disposition: Home, Self-Care Condition: Good Prescriptions Prescriptions: New ibuprofen 600 mg tablet 600 mg PO Q6HP PRN (Reason: Moderate Pain) Qty: 20 0RF lidocaine 4 % adhesive patch,medicated 1 patch topical DAILY PRN (Reason: pain) Qty: 10 0RF Rx Instructions: apply patch leave on for 12 hours then remove for 12 hours methocarbamol 500 mg tablet 500 mg PO TID PRN (Reason: muscle spasm) Qty: 12 0RF Referrals Follow up/Referrals: Provider,Referral, MD [Primary Care Provider] - See instructions Activity Restrictions/Add. Instructions Additional Instructions/Restrictions: *Ibuprofen alejandro 6 hours with meal as needed for pain/inflammation *Remember you had a Toradol shot in the clinic today, which is similar to Motrin *Not additional anti-inflammatory like motrin, aleve, advil with the above amount of ibuprofen. You can still take Tylenol every 4 hours as needed if you need something else for pain *Ice 20 minutes every 2 hours for the first 48 hours after the initial injury followed by moist heat every 20 minutes 3-4 times a day to affected area *Muscle relaxer every 8 hours as needed for muscle spasms but remember, it WILL cause drowsiness You cannot take it and drive, operate machinery or care for small children. *Keep this area active, no movement leads to more stiffness, However take it easy and avoid heavy lifting pushing or pulling *Follow up with you family doctor if no improvement for further treatment Clinical Impressions Clinical Impression: Low back pain Stand Alone Forms Stand Alone Forms: Work/School Release Instructions Patient Instructions: Ibuprofen, Methocarbamol Print Language Print Language: Spanish Discharge ED Provider: Gabriella Alcocer [facility] [place] HPI General Stated complaint: back pain Mode of Arrival: Ambulatory Source of Information: Patient Limitations: No Limitations Time Seen by Provider: 01/27/24 19:03 Description of Symptoms (Recalled from Triage Doc. by RN): PATIENT C/O LOWER BACK PAIN THAT STARTED YESTERDAY HEENT Symptoms (Recalled from RN notes): No Resp Symptoms (Recalled from RN notes): No Skin Symptoms (Recalled from RN notes): No MS Symptoms (Recalled from RN notes): Yes Functional Status (Recalled from RN notes): WNL History of Present Illness Provider Complaint: Patient states that he was pulling a tire off a car yesterday and felt something pull in his lower back area States that since then he has been having muscle spasm in his lower back worse on the right side States today it was still bothering him and he didnt go to work and they wanted him to get checked and get a note for work Denies Urinary symptoms denies burning with urination or radiation of pain Denies loss of control of bowel or bladder Related Data Previous Rx's ?Medication ?Instructions ?Recorded ibuprofen 600 mg tablet 600 mg PO Q6HP PRN Moderate Pain 01/27/24 #20 tabs lidocaine 4 % topical patch 1 patch topical DAILY PRN pain #10 01/27/24 ea methocarbamol 500 mg tablet 500 mg PO TID PRN muscle spasm #12 01/27/24 tabs Allergies Allergy/AdvReac Type Severity Reaction Status Date / Time No Known Allergies Allergy Verified 12/01/21 10:01 Worker's Comp Is this a Worker's Comp case?: No [facility] Disclaimer: The information contained in this section may have been updated after the patient was seen, as this information can be updated by other users. Medical History Chest pain SOB (shortness of breath) Social History Smoking Status: Current every day smoker tobacco type: cigarettes packs per day: 1 second hand exposure: Yes alcohol intake: never substance use type: marijuana current occupational status: employed Travel in the last 8 weeks: None household members: significant other housing: house current occupation: [employer] current occupational exposures/hazards: No caffeine: Yes ROS Obtained: Yes All systems reviewed & no additional complaints except as documented and Yes Systems reviewed as appropriate & no additional complaints except as documented Constitutional Constitutional: Reports system reviewed and no additional complaints, except as documented, Reports as per HPI, Denies body ache, Denies chills and Denies fever(s) Eyes Eyes: Reports system reviewed and no additional complaints, except as documented and Reports as per HPI ENT Ears, Nose, Mouth, and Throat: Reports system reviewed and no additional complaints, except as documented and Reports as per HPI Cardiovascular Cardiovascular: Reports system reviewed and no additional complaints, except as documented and Reports as per HPI Respiratory Respiratory: Reports system reviewed and no additional complaints, except as documented, Reports as per HPI and Denies shortness of breath Gastrointestinal Gastrointestingal: Reports system reviewed and no additional complaints, except as documented and as per HPI; Denies abdominal pain Genitourinary Male Genitourinary: Reports system reviewed and no additional complaints, except as documented and Reports as per HPI Musculoskeletal Musculoskeletal: Reports system reviewed and no additional complaints, except as documented, Reports as per HPI and Reports back pain (muscle spasm like pain in lower back right side denies radiation of pain) Physical Exam General General appearance: alert and in no apparent distress ENT ENT exam: Present mucous membranes moist Respiratory Respiratory exam: Present normal lung sounds bilaterally; Absent respiratory distress or wheezes Cardiovascular Cardiovascular exam: Present regular rate, normal rhythm and normal heart sounds Abdominal Exam Abdominal exam: Present soft and normal bowel sounds; Absent distention or tenderness Back Exam Back exam: Present tenderness and muscle spasm Back 1 view image: 2 1. reports spasm like pain, tightness worse with movement denies radiation of pain Denies loss of control of bowel or bladder Neurological Exam Neurological exam: Present alert, oriented X3 and normal gait Medical Decision Making Medical Records Screening: Per USPSTF and CDC recommendations, given the prevalence of disease in our region, it is our hospital?s policy to screen for HIV and viral Hepatitis for all patients aged 18 and over and those with ongoing risk factors. Lizandro Inquiry Pt receiving controlled substance: No Lizandro was queried for this patient: No Vital Signs: 01/27/24 18:40 Temperature 98.4 F Temperature Source Oral Pulse Rate [Left Brachial] 64 Respiratory Rate 17 Blood Pressure [Left Arm] 124/74 Blood Pressure Mean [Left Arm] 90 Blood Pressure Source [Left Arm] Automatic Cuff Blood Pressure Position [Left Arm] Sitting 02 Sat by Pulse Oximetry 98 Oxygen Delivery Method Room Air Medical Decision Narrative: Discussed xray and UA and patient declined States feels like he pulled a muscle felt it pull when he was pulling the tire off the car wants something to help with the pain and work note
[2024-01-27 19:15] VITALS: BP 124/74; PULSE 64; RESP 17; TEMP 36.9; O2SAT 98
== END 2024-01-27 19:19 | disposition home or self-care (01) ==
PROVIDERS: Emergency Provider Nurse Practitioner
DX: M54.50 Low back pain, unspecified (principal); X50.0XXA Overexertion from strenuous movement or load, initial encounter; Y93.89 Activity, other specified; Y92.9 Unspecified place or not applicable
CPT/HCPCS: 99212; G0381

== ENCOUNTER 2024-04-10 19:00 | Emergency (ER) | payer SELFPAY ==
[2024-04-10 19:09] VITALS: BP 127/74; PULSE 115; RESP 18; TEMP 38.1; O2SAT 99; BMI 29.1
[2024-04-10 19:26] LABS: Coronavirus 19, PCR Not Detected (NotDetected); Influenza B, PCR Not Detected (NotDetected)
--- NOTE | 2024-04-10 19:33 | HMH.EDGENADL ---
Discharge Plan Disposition Patient Disposition: Home, Self-Care Condition: Good Prescriptions Prescriptions: No Action No Known Home Medications Referrals Follow up/Referrals: Provider,Referral, MD [Primary Care Provider] - See instructions Activity Restrictions/Add. Instructions Additional Instructions/Restrictions: Rest. Drink plenty of fluids. Take your Tamiflu as directed. You may take acetaminophen and ibuprofen [id number] for symptomatic relief. Follow-up with your PCP within 7 days. Return to the ED for worsening of condition Clinical Impressions Clinical Impression: Influenza A Print Language Print Language: Swedish Discharge ED Provider: April Haynes General Adult HPI <Margoth Christie APRN - Last Filed: 04/10/24 21:20> General Chief complaint: Upper Respiratory Infection Stated complaint: SOA,pain left side,nose stopped up Time Seen by Provider: 04/10/24 19:33 Mode of Arrival: Ambulatory Limitations: No Limitations Description of Symptoms (Recalled from ER Triage Doc. by RN): Patient states he has felt generally ill x4 days. States today he started having a sharp pain in his left side. Denies vomiting. Endorses nausea. Endorses cough. States he has been taking OTC cough medicine with no relief. History of Present Illness HPI narrative: Patient is a 28-year-old male who presents to the ED for complaints of cough, congestion and chest pain during cough for 2 days. Patient states he has bodyaches and chills. Has not taken any medication prior to arrival. Related Data Home Medications ?Medication ?Instructions ?Recorded ?Confirmed No Known Home Medications 04/10/24 04/10/24 Allergies Allergy/AdvReac Type Severity Reaction Status Date / Time No Known Allergies Allergy Verified 04/06/24 20:25 PFSH <Margoth Christie APRN - Last Filed: 04/10/24 21:20> [facility] Disclaimer: The information contained in this section may have been updated after the patient was seen, as this information can be updated by other users. Medical History Chest pain SOB (shortness of breath) Social History Smoking Status: Current every day smoker tobacco type: cigarettes packs per day: 1 second hand exposure: Yes alcohol intake: never substance use type: marijuana current occupational status: employed Travel in the last 8 weeks: None household members: significant other housing: house current occupation: [employer] current occupational exposures/hazards: No caffeine: Yes Have you lived/traveled outside [place] in past 30 days?: No Contact w/someone who lives/traveled outside US past 30 days?: No Exposure to someone with infectious disease in past 14 days?: No Do you have a fever (greater than 100.4 F or 38 C)?: No Have you tested positive for COVID-19: No Exposed to someone with COVID-19 in past 14 days?: No Do you have a sore throat?: No Do you have a cough?: No Do you have any weakness?: No Do you have any diarrhea?: No Are you experiencing any unusual bleeding?: No Do you have any muscle aches/pain?: No Do you have any abdominal pain?: No Are you experiencing loss of taste or smell?: No Other Medical History Have you received the Flu Vaccine for this season: No Have you received the Pneumonia Vaccine: No <Margoth Christie APRN - Last Filed: 04/10/24 21:20> ROS Obtained: Yes Systems reviewed as appropriate & no additional complaints except as documented Physical Exam <Margoth Christie APRN - Last Filed: 04/10/24 21:20> General General appearance: alert and in no apparent distress Head Head exam: atraumatic and normocephalic Eye Eye exam: Present normal appearance and PERRL ENT ENT exam: Present normal exam Neck Neck exam: Present normal inspection Chest Chest inspection: Present normal inspection and symmetric chest wall rise; Absent tenderness Respiratory Respiratory exam: Present normal lung sounds bilaterally Cardiovascular Cardiovascular exam: Present regular rate Abdominal Exam Abdominal exam: Present soft and normal bowel sounds; Absent tenderness Extremities Exam Extremities exam: Present normal inspection and full ROM Back Exam Back exam: Present normal inspection and full ROM Neurological Exam Neurological exam: Present alert and oriented X3 Psychiatric Psychiatric exam: Present normal affect and normal mood Skin Skin exam: Present warm and dry Medical Decision Making <Margoth Christie APRN - Last Filed: 04/10/24 21:20> Medical Records Screening: Per USPSTF and CDC recommendations, given the prevalence of disease in our region, it is our hospital?s policy to screen for HIV and viral Hepatitis for all patients aged 18 and over and those with ongoing risk factors. Lizandro Inquiry Pt receiving controlled substance: No Lizandro was queried for this patient: No Vital Signs: 04/10/24 19:09 04/10/24 21:27 Temperature 100.5 F H 97.9 F Temperature Source Temporal Artery Scan Pulse Rate 75 Pulse Rate [Radial] 115 H Respiratory Rate 18 20 Blood Pressure 120/87 Blood Pressure [R Arm] 127/74 Blood Pressure Mean [R Arm] 91 Blood Pressure Source [R Arm] Automatic Cuff 02 Sat by Pulse Oximetry 99 Oxygen Delivery Method Room Air Room Air Lab Data Lab Results 04/10/24 19:23: SARS-CoV-2 (PCR) Not detected, Influenza A Untype (PCR) Detected A, Influenza Type B (PCR) Not detected 04/10/24 20:10: WBC 7.1, RBC 4.73, Hgb 13.8 L, Hct 41.1 L, MCV 86.9, MCH 29.2, MCHC 33.6, RDW 11.7, Plt Count 168, MPV 11.0 H, Neut % (Auto) 74.4, Lymph % (Auto) 13.1, [place] % (Auto) 10.6 H, Eos % (Auto) 0.8, Baso % (Auto) 0.7, Neut # (Auto) 5.3, Lymph # (Auto) 0.9, [place] # (Auto) 0.8, Eos # (Auto) 0.1, Baso # (Auto) 0.1, Sodium 136, Potassium 4.1, Chloride 103, Carbon Dioxide 24, Anion Gap 13.1, BUN 10, Creatinine 0.90, Estimated Creat Clear 170, Estimated GFR 101, Est GFR ( Amer) 122, Glucose 94, Calcium 8.6, Total Bilirubin 0.2, AST 38, ALT 24, Alkaline Phosphatase 52, Troponin I < 0.01, Total Protein 7.2, Albumin 4.6, Globulin 2.6, Albumin/Globulin Ratio 1.8 04/10/24 20:10 04/10/24 20:10 Orders (Tests/Meds): ED MEDICATIONS Discontinued Medications Generic Name Dose Route Start Last Admin Trade Name Freq PRN Reason Stop Dose Admin Acetaminophen 1,000 mg 04/10/24 19:34 04/10/24 19:48 Acetaminophen 500mg Tab PO 04/10/24 19:35 1,000 mg ONCE ONE Administration Guaifenesin 100 mg 04/10/24 19:49 04/10/24 20:15 Guaifenesin 200mg/10ml Syrup Udc PO 04/10/24 19:50 100 mg ONCE ONE Administration Oseltamivir Phosphate 75 mg 04/10/24 21:00 04/10/24 20:15 Oseltamivir 75mg Capsule PO 04/15/24 09:01 75 mg BID ANA Administration ORDERS Category Date Time Status CXR --portable [XR chest portable] Stat Exams 04/10/24 19:34 Completed CBC w/Auto Diff [Complete Blood Count Auto Diff] Stat Lab 04/10/24 20:10 Completed CMP [Comprehensive Metabolic Panel] Stat Lab 04/10/24 20:10 Completed Rapid PCR Covid and Flu A/B Stat Lab 04/10/24 19:23 Completed Trop I [Troponin I] Stat Lab 04/10/24 20:10 Completed Medical Decision Narrative: In summary, patient is a 28-year-old male PMHx hypertension, pericarditis who presents to the ED for cough, chest pain, congestion. Upon initial exam, patient is alert, oriented and cooperative. Patient is hemodynamically stable. Physical exam remarkable for nasal congestion. Differential diagnosis includes ACS, pneumonia, pneumothorax, viral illness, among others Initial workup will be conducted with hematologic labs, imaging and respiratory swab. Initial inventions include acetaminophen and Robitussin. Initial workup reviewed by me. Hematologic labs reveal no leukocytosis, stable H&H. First troponin <0.01. Viral swab positive for influenza A. I had an interactive discussion with the patient about Tamiflu, he states he would like a prescription for this. I advised him to stop it if he develops any GI issues. I informally interpreted the imaging as no acute cardiopulmonary process. See final read. Upon repeat evaluation, patient had an acceptable resolution of symptoms. They were ambulatory in the ED. Able to tolerate p.o. he is requesting we discharge at this time. Upon discharge, patient was hemodynamically stable. Discussed that he needs to follow-up with his PCP within 7 days. We discussed return precautions to the ED. I was consulted by the LIANA, and we discussed the complexity of problems being addressed. I approved the treatment and management plan for this patient's care in the emergency department, thus performing a substantial portion of the medical decision making. April Haynes MD <April Haynes MD - Last Filed: 04/10/24 23:22> Vital Signs: 04/10/24 19:09 04/10/24 21:27 Temperature 100.5 F H 97.9 F Temperature Source Temporal Artery Scan Pulse Rate 75 Pulse Rate [Radial] 115 H Respiratory Rate 18 20 Blood Pressure 120/87 Blood Pressure [R Arm] 127/74 Blood Pressure Mean [R Arm] 91 Blood Pressure Source [R Arm] Automatic Cuff 02 Sat by Pulse Oximetry 99 Oxygen Delivery Method Room Air Room Air Lab Data Lab Results 04/10/24 19:23: SARS-CoV-2 (PCR) Not detected, Influenza A Untype (PCR) Detected A, Influenza Type B (PCR) Not detected 04/10/24 20:10: WBC 7.1, RBC 4.73, Hgb 13.8 L, Hct 41.1 L, MCV 86.9, MCH 29.2, MCHC 33.6, RDW 11.7, Plt Count 168, MPV 11.0 H, Neut % (Auto) 74.4, Lymph % (Auto) 13.1, [place] % (Auto) 10.6 H, Eos % (Auto) 0.8, Baso % (Auto) 0.7, Neut # (Auto) 5.3, Lymph # (Auto) 0.9, [place] # (Auto) 0.8, Eos # (Auto) 0.1, Baso # (Auto) 0.1, Sodium 136, Potassium 4.1, Chloride 103, Carbon Dioxide 24, Anion Gap 13.1, BUN 10, Creatinine 0.90, Estimated Creat Clear 170, Estimated GFR 101, Est GFR ( Amer) 122, Glucose 94, Calcium 8.6, Total Bilirubin 0.2, AST 38, ALT 24, Alkaline Phosphatase 52, Troponin I < 0.01, Total Protein 7.2, Albumin 4.6, Globulin 2.6, Albumin/Globulin Ratio 1.8 Orders (Tests/Meds): ED MEDICATIONS Discontinued Medications Generic Name Dose Route Start Last Admin Trade Name Freq PRN Reason Stop Dose Admin Acetaminophen 1,000 mg 04/10/24 19:34 04/10/24 19:48 Acetaminophen 500mg Tab PO 04/10/24 19:35 1,000 mg ONCE ONE Administration Guaifenesin 100 mg 04/10/24 19:49 04/10/24 20:15 Guaifenesin 200mg/10ml Syrup Udc PO 04/10/24 19:50 100 mg ONCE ONE Administration Oseltamivir Phosphate 75 mg 04/10/24 21:00 04/10/24 20:15 Oseltamivir 75mg Capsule PO 04/15/24 09:01 75 mg BID ANA Administration ORDERS Category Date Time Status CXR --portable [XR chest portable] Stat Exams 04/10/24 19:34 Completed CBC w/Auto Diff [Complete Blood Count Auto Diff] Stat Lab 04/10/24 20:10 Completed CMP [Comprehensive Metabolic Panel] Stat Lab 04/10/24 20:10 Completed Rapid PCR Covid and Flu A/B Stat Lab 04/10/24 19:23 Completed Trop I [Troponin I] Stat Lab 04/10/24 20:10 Completed Medical Decision Narrative: In summary, patient is a 28-year-old male PMHx hypertension, pericarditis who presents to the ED for cough, chest pain, congestion. Upon initial exam, patient is alert, oriented and cooperative. Patient is hemodynamically stable. Physical exam remarkable for nasal congestion. Differential diagnosis includes ACS, pneumonia, pneumothorax, viral illness, among others Initial workup will be conducted with hematologic labs, imaging and respiratory swab. Initial inventions include acetaminophen and Robitussin. Initial workup reviewed by me. Hematologic labs remarkable for . Viral swab positive for influenza A. I considered additional testing but deferred due to I informally interpreted the imaging as Upon repeat evaluation, patient had an acceptable resolution of symptoms. They were ambulatory in the ED. Able to tolerate p.o. Given this [patient is appropriate for discharge at this time will be discharged with a prescription for? The case was discussed with hospital medicine regarding management and they will admit the patient to their service for continued evaluation at this time? Etc.] I was consulted by the LIANA, and we discussed the complexity of problems being addressed. I approved the treatment and management plan for this patient's care in the emergency department, thus performing a substantial portion of the medical decision making. April Haynes MD Critical Care <Margoth Christie, [employer]CIAL [employer] MANAGER - Last Filed: 04/10/24 21:20> Critical Care Time Critical Care Time: No
--- NOTE | 2024-04-10 19:34 | XR_ITS ---
PROCEDURE INFORMATION: Exam: XR Chest Exam date and time: 04/10/2024 7:39 PM Age: 28 years old Clinical indication: Cough; Additional info: SOA TECHNIQUE: Imaging protocol: Radiologic exam of the chest. Views: 1 view. COMPARISON: CT ANGIO CHEST PE PROTOCOL 05/22/2021 11:47 PM FINDINGS: Lungs: Mild linear scar versus atelectasis in the left lower lung. The lungs are otherwise clear. Pleural spaces: Normal. No pleural effusion. No pneumothorax. Heart/Mediastinum: Normal. No cardiomegaly. Bones/joints: Unremarkable. IMPRESSION: No acute findings.
[2024-04-10 19:45] LABS: Influenza A, PCR Detected (NotDetected)
[2024-04-10] MEDS: ACETAMINOPHEN 500MG TAB 1000 MG PO (19:48)
--- NOTE | 2024-04-10 19:58 | ECG_ITS ---
APPROVED REPORT Exam: Resting ECG HR:110 bpm ECG Measurements Heart Rate 110 AXES ID 123 P 43 QRSd 84 QRS 35 QT 312 T 16 QTc [address] DEVIATION AND MODERATE T-WAVE ABNORMALITY, CONSIDER ANTEROLATERAL ISCHEMIA [-0.1+ mV T-WAVE IN V3-V6] ABNORMAL ECG Electronically signed by : KAELYN IRAHETA, 04/12/2024 16:57:12
[2024-04-10] MEDS: OSELTAMIVIR 75MG CAPSULE 75 MG PO (20:15)
[2024-04-10] MEDS: guaiFENesin 200MG/10ML SYRUP UDC 100 MG PO (20:15)
[2024-04-10 20:20] LABS: Basophils # 0.1 K/mm3 (0-0.2); Basophils % 0.7 % (0.1-2.0); Eosinophils # 0.1 K/mm3 (0.0-0.4); Eosinophils % 0.8 % (0.1-12.0); Hematocrit 41.1 % (42.0-52.0); Hemoglobin 13.8 g/dL (14.1-18.0); Lymphocytes # 0.9 K/mm3 (0.7-4.5); Lymphocytes % 13.1 % (10-50); Mean Corpuscular HGB Conc 33.6 g/dL (31.8-35.4); Mean Corpuscular Hemoglobin 29.2 pg (27.0-31.2); Mean Corpuscular Volume 86.9 fl (80-94); Monocytes # 0.8 K/mm3 (0.1-1.0); Monocytes % 10.6 % (1.7-9.3); Neutrophils # 5.3 K/mm3 (1.8-7.8); Neutrophils % 74.4 % (37.0-80.0); Platelet Count 168 K/mm3 (142-424); Red Blood Count 4.73 M/mm3 (4.60-6.20); Red Cell Distribution Width 11.7 % (11.5-17.5); White Blood Count 7.1 K/mm3 (4.8-10.8)
[2024-04-10 20:24] LABS: Chloride 103 mmol/L (98-107)
[2024-04-10 20:25] LABS: Albumin Level 4.6 g/dl (3.5-5.0); Potassium 4.1 mmoL/L (3.5-5.1); Sodium 136 mmol/L (136-145)
[2024-04-10 20:27] LABS: Blood Urea Nitrogen 10 mg/dl (9-20); Creatinine Clearance Estimated 170 mL/min (50-200); Estimated Glomerular Filt Rate 101 ml/min (>60); GFR (African American) 122 ML/MIN (>60)
[2024-04-10 20:28] LABS: Alanine Aminotransferase 24 U/L (12-78); Albumin/Globulin Ratio 1.8 (1.1-1.8); Alkaline Phosphatase 52 U/L (38-126); Anion Gap 13.1 mEq/L (5-15); Aspartate Amino Transferase 38 U/L (17-59); Bilirubin,Total 0.2 mg/dl (0.2-1.3); Calcium 8.6 mg/dl (8.4-10.2); Carbon Dioxide 24 mmol/L (22.0-30.0); Globulin 2.6 g/dL (1.3-3.2); Glucose 94 mg/dl (74-100); Total Protein,Serum 7.2 g/dl (6.3-8.2)
[2024-04-10 20:41] LABS: Troponin I < 0.01 ng/ml (0.00-0.034)
--- NOTE | 2024-04-10 21:14 | PC.NURSE ---
Pt blood sugar 85 at this time.
[2024-04-10 21:27] VITALS: BP 120/87; PULSE 75; RESP 20; TEMP 36.6; O2SAT 100
== END 2024-04-10 21:28 | disposition home or self-care (01) ==
PROVIDERS: Nurse Practitioner; Emergency Provider Student in an Organized Health Care Education/Training Program
DX: J09.X2 Influenza due to identified novel influenza A virus with other respiratory manifestations (principal)
CPT/HCPCS: 71045; 80053; 84484; 85025; 87636; 93005; 99284

== ENCOUNTER 2024-07-11 20:12 | Emergency (ER) | payer MEDICAID, SELFPAY ==
[2024-07-11 20:15] VITALS: BP 162/88; PULSE 104; RESP 18; TEMP 36.9; O2SAT 99; BMI 29.6
--- NOTE | 2024-07-11 20:16 | ECG_ITS ---
APPROVED REPORT Exam: Resting ECG HR:95 bpm ECG Measurements Heart Rate 95 AXES MO 120 P 59 QRSd 94 QRS 59 QT 354 T 61 QTc 406 Conclusion SINUS RHYTHM NONSPECIFIC T-WAVE ABNORMALITY No STEMI Electronically signed by : TONNY STRONG, 07/12/2024 06:18:07
--- NOTE | 2024-07-11 20:46 | ED_ITS ---
<Statement entered by Anthony Ann MD - 07/12/24 00:09> I was consulted by the LIANA, and we discussed the complexity of the problems being addressed. I approved the treatment and management plan for this patient's care in the emergency department, thus performing a substantive portion of the medical decision making. Anthony Ann MD Discharge Plan Disposition Patient Disposition: Home, Self-Care Condition: Good Prescriptions Prescriptions: No Action No Known Home Medications Referrals Follow up/Referrals: Provider,MD Fredy [Primary Care Provider] - See instructions Nic Oswald MD [Staff Physician] - See instructions Activity Restrictions/Add. Instructions Additional Instructions/Restrictions: I have referred you to cardiology for further workup and ongoing management. If you have persistent new or worsening signs or symptoms follow-up with your PCP return to the ER as needed. Clinical Impressions Clinical Impression: Chest pain Stand Alone Forms Stand Alone Forms: Work/School Release Print Language Print Language: Divehi Discharge ED Provider: Anthony Ann [facility] <N[place] - Last Filed: 07/11/24 22:04> General Chief Complaint: Chest Pain Stated Complaint: chest pain Time Seen by Provider: 07/11/24 20:46 Mode of Arrival: Ambulatory Source of Information: Patient Description of Symptoms (Recalled from ER Triage Doc. by RN): Pt presents with c/o chest pain that started this AM. PT states he has a hx of infection in my heart and heart surgery History of Present Illness HPI narrative: Patient presents for evaluation of central chest pain. Patient states that his chest began hurting when he woke up this morning. He denies any shortness of breath fever chills hemoptysis hematochezia melena nausea vomiting diarrhea cough congestion. Patient does have a history of previous heart surgery for what sounds like pericarditis at age 20. He does not currently follow with cardiology and is on no home medications. He denies any aggravating or relieving factors. Patient reports that the pain has progressed throughout the day and is not improving although he is taking nothing at home. Related Data Home Medications ?Medication ?Instructions ?Recorded ?Confirmed No Known Home Medications 04/10/24 04/10/24 Allergies Allergy/AdvReac Type Severity Reaction Status Date / Time No Known Allergies Allergy Verified 04/06/24 20:25 [facility] <[place] - Last Filed: 07/11/24 22:04> [facility] Disclaimer: The information contained in this section may have been updated after the patient was seen, as this information can be updated by other users. Medical History Chest pain SOB (shortness of breath) Social History Smoking Status: Never smoker second hand exposure: Yes alcohol intake: never substance use type: marijuana current occupational status: employed Travel in the last 8 weeks?: None household members: significant other housing: house current occupation: [employer] current occupational exposures/hazards: No caffeine: Yes Have you lived/traveled outside [place] in past 30 days?: No Contact w/someone who lives/traveled outside US past 30 days?: No Exposure to someone with infectious disease in past 14 days?: No Do you have a fever (greater than 100.4 F or 38 C)?: No Have you tested positive for COVID-19?: No Exposed to someone with COVID-19 in past 14 days?: No Do you have a sore throat?: No Do you have a cough?: No Do you have any weakness?: No Do you have any diarrhea?: No Are you experiencing any unusual bleeding?: No Do you have any muscle aches/pain?: No Do you have any abdominal pain?: No Are you experiencing loss of taste or smell?: No Other Medical History Have you received the Flu Vaccine for this season: No Have you received the Pneumonia Vaccine: No <[place] - Last Filed: 07/11/24 22:04> ROS Obtained: Yes Systems reviewed as appropriate & no additional complaints except as documented Physical Exam <[place] - Last Filed: 07/11/24 22:04> General General appearance: alert Respiratory Respiratory exam: Present normal lung sounds bilaterally Cardiovascular Cardiovascular exam: Present regular rate Neurological Exam Neurological exam: Present alert and oriented X3 HEART Score <[place] - Last Filed: 07/11/24 22:04> HEART Score HEART Score assessment performed?: Yes History (anamnesis): Slightly suspicious ECG: Normal Age: <45 years Risk factors: 1-2 risk factors Troponin: </= normal limit HEART Score: 1 Critical Care <[place] - Last Filed: 07/11/24 22:04> Critical Care Time Critical Care Time: Yes Attestation: On 07/11/24, the high probability of a clinically significant, sudden or life threatening deterioration of the following system(s) required my full and direct attention, intervention and personal management. The time I documented below is in addition to time spent performing reported procedures but includes the following listed in this critical care notation. Total Time Total Critical Care Time: 30 Medical Decision Making <[place] - Last Filed: 07/11/24 22:04> Medical Records Medical records reviewed: Yes I reviewed the patient's medical records. Lizandro Inquiry Pt receiving controlled substance: No Vital Signs Vital Signs: 07/11/24 20:15 07/11/24 21:30 07/11/24 21:54 Temperature 98.5 F 98.1 F Temperature Source Temporal Artery Scan Pulse Rate 81 72 Pulse Rate [Right] 104 H Respiratory Rate 18 20 20 Blood Pressure 138/74 138/74 Blood Pressure [Right Arm] 162/88 H Blood Pressure Mean [Right Arm] 112 02 Sat by Pulse Oximetry 99 96 Oxygen Delivery Method Room Air Room Air Lab Data Lab results reviewed: Yes I reviewed the patient's lab results. Labs: Lab Results 07/11/24 20:20: WBC 10.3, RBC 4.50 L, Hgb 13.6 L, Hct 40.6 L, MCV 90.2, MCH 30.2, MCHC 33.5, RDW 12.4, Plt Count 203, MPV 11.4 H, Neut % (Auto) 57.1, Lymph % (Auto) 30.1, Woodruff % (Auto) 9.0, Eos % (Auto) 2.1, Baso % (Auto) 0.8, Neut # (Auto) 5.9, Lymph # (Auto) 3.1, Woodruff # (Auto) 0.9, Eos # (Auto) 0.2, Baso # (Auto) 0.1, PT 10.3, INR 0.92, D-Dimer 0.45, Sodium 138, Potassium 3.8, Chloride 105, Carbon Dioxide 26, Anion Gap 10.8, BUN 11, Creatinine 0.80, Estimated Creat Clear 172, Estimated GFR 115, Est GFR ( Amer) 139, Glucose 108 H, Calcium 9.0, Total Bilirubin 0.4, AST 36, ALT 27, Alkaline Phosphatase 61, Troponin I < 0.01, NT-Pro-B Natriuret Pep 45.6, Total Protein 6.8, Albumin 4.5, Globulin 2.3, Albumin/Globulin Ratio 2.0 H, Procalcitonin 0.039 07/11/24 20:50: VBG pH 7.39, VBG pCO2 43.1, VBG pO2 56.2 H, VBG HCO3 25.3, VBG Total CO2 26.6, VBG O2 Saturation 90.3 H, VBG Base Excess 0.2, VBG Lactic Acid 1.9 07/11/24 21:30: Lactate 1.3 07/11/24 20:20 07/11/24 20:20 Response Orders (Tests/Meds): ED MEDICATIONS Discontinued Medications Generic Name Dose Route Start Last Admin Trade Name Freq PRN Reason Stop Dose Admin Acetaminophen 1,000 mg 07/11/24 20:49 07/11/24 21:35 Acetaminophen 500mg Tab PO 07/11/24 20:50 1,000 mg ONCE ONE Administration Ketorolac Tromethamine 15 mg 07/11/24 20:49 07/11/24 21:35 Ketorolac 30mg/Ml Vial IV 07/11/24 20:50 15 mg ONCE ONE Administration ORDERS Category Date Time Status Chest XR 2 view (NOT portable) [XR chest 2V] Stat Exams 07/11/24 20:50 Taken POCUS Point of Care (ER Only) Stat Exams 07/11/24 20:50 Completed BNP [NT Pro Brain Natriuretic Pep.] Stat Lab 07/11/24 20:20 Completed CBC w/Auto Diff [Complete Blood Count Auto Diff] Stat Lab 07/11/24 20:20 Completed CMP [Comprehensive Metabolic Panel] Stat Lab 07/11/24 20:20 Completed D-Dimer Stat Lab 07/11/24 20:20 Completed INR [Prothrombin Time INR] Stat Lab 07/11/24 20:20 Completed Lactic Acid Stat Lab 07/11/24 21:30 Completed Procalcitonin Stat Lab 07/11/24 20:20 Completed Trop I [Troponin I] Stat Lab 07/11/24 20:20 Completed Troponin I Q3H Lab 07/11/24 23:50 Ordered Troponin I Q3H Lab 07/12/24 02:50 Ordered Blood Culture Stat Micro 07/11/24 21:27 Received VBG [Venous Blood Gas] Stat RT 07/11/24 20:50 Completed MDM Narrative Medical Decision Narrative: In summary patient is a 29-year-old male who presents to the emergency department for evaluation of chest pain. Patient is initially hypertensive with a blood pressure 162/88 heart rate 100/tachycardia on the bedside monitor breathing 18 times a minute satting 99% on room air upon arrival, afebrile at 98.5. Physical exam is remarkable for clear breath sounds with no increased work of breathing adventitious sounds or accessory muscle use, heart sounds S1- S2 regular rate and rhythm without murmurs gallops rubs or thrills. Is no dependent edema noted. Abdomen soft nontender tender no rebound or guarding or rigidity. Bowel sounds normal active. I am unable to reproduce his chest pain on palpation.. Differential diagnosis includes PE versus pericarditis versus ACS versus pneumonia etc. Initial workup will be conducted with hematologic labs plain film chest x-ray twelve-lead EKG. Initial interventions include Tylenol Toradol Zofran. Initial workup reviewed by me and his hematologic labs are nonactionable including a negative procalcitonin negative troponin negative NT proBNP within normal white count, my formal tryptase of his chest x-ray shows no acute processes and POCUS revealed no cardiac abnormalities. Upon repeat evaluation patient reports improvement in his pain after initial intervention. Given this patient is appropriate for discharge with outpatient referral to cardiology and close follow-up with his PCP with strict return precautions. Patient verbalized understanding agreement. <Anthony Ann MD - Last Filed: 07/11/24 21:05> Vital Signs Vital Signs: 07/11/24 20:15 07/11/24 21:30 07/11/24 21:54 Temperature 98.5 F 98.1 F Temperature Source Temporal Artery Scan Pulse Rate 81 72 Pulse Rate [Right] 104 H Respiratory Rate 18 20 20 Blood Pressure 138/74 138/74 Blood Pressure [Right Arm] 162/88 H Blood Pressure Mean [Right Arm] 112 02 Sat by Pulse Oximetry 99 96 Oxygen Delivery Method Room Air Room Air Lab Data Labs: Lab Results 07/11/24 20:20: WBC 10.3, RBC 4.50 L, Hgb 13.6 L, Hct 40.6 L, MCV 90.2, MCH 30.2, MCHC 33.5, RDW 12.4, Plt Count 203, MPV 11.4 H, Neut % (Auto) 57.1, Lymph % (Auto) 30.1, Woodruff % (Auto) 9.0, Eos % (Auto) 2.1, Baso % (Auto) 0.8, Neut # (Auto) 5.9, Lymph # (Auto) 3.1, Woodruff # (Auto) 0.9, Eos # (Auto) 0.2, Baso # (Auto) 0.1, PT 10.3, INR 0.92, D-Dimer 0.45, Sodium 138, Potassium 3.8, Chloride 105, Carbon Dioxide 26, Anion Gap 10.8, BUN 11, Creatinine 0.80, Estimated Creat Clear 172, Estimated GFR 115, Est GFR ( Amer) 139, Glucose 108 H, Calcium 9.0, Total Bilirubin 0.4, AST 36, ALT 27, Alkaline Phosphatase 61, Troponin I < 0.01, NT-Pro-B Natriuret Pep 45.6, Total Protein 6.8, Albumin 4.5, Globulin 2.3, Albumin/Globulin Ratio 2.0 H, Procalcitonin 0.039 07/11/24 20:50: VBG pH 7.39, VBG pCO2 43.1, VBG pO2 56.2 H, VBG HCO3 25.3, VBG Total CO2 26.6, VBG O2 Saturation 90.3 H, VBG Base Excess 0.2, VBG Lactic Acid 1.9 07/11/24 21:30: Lactate 1.3 Response Orders (Tests/Meds): ED MEDICATIONS Discontinued Medications Generic Name Dose Route Start Last Admin Trade Name Andreaq PRN Reason Stop Dose Admin Acetaminophen 1,000 mg 07/11/24 20:49 07/11/24 21:35 Acetaminophen 500mg Tab PO 07/11/24 20:50 1,000 mg ONCE ONE Administration Ketorolac Tromethamine 15 mg 07/11/24 20:49 07/11/24 21:35 Ketorolac 30mg/Ml Vial IV 07/11/24 20:50 15 mg ONCE ONE Administration ORDERS Category Date Time Status Chest XR 2 view (NOT portable) [XR chest 2V] Stat Exams 07/11/24 20:50 Taken POCUS Point of Care (ER Only) Stat Exams 07/11/24 20:50 Completed BNP [NT Pro Brain Natriuretic Pep.] Stat Lab 07/11/24 20:20 Completed CBC w/Auto Diff [Complete Blood Count Auto Diff] Stat Lab 07/11/24 20:20 Completed CMP [Comprehensive Metabolic Panel] Stat Lab 07/11/24 20:20 Completed D-Dimer Stat Lab 07/11/24 20:20 Completed INR [Prothrombin Time INR] Stat Lab 07/11/24 20:20 Completed Lactic Acid Stat Lab 07/11/24 21:30 Completed Procalcitonin Stat Lab 07/11/24 20:20 Completed Trop I [Troponin I] Stat Lab 07/11/24 20:20 Completed Troponin I Q3H Lab 07/11/24 23:50 Ordered Troponin I Q3H Lab 07/12/24 02:50 Ordered Blood Culture Stat Micro 07/11/24 21:27 Received VBG [Venous Blood Gas] Stat RT 07/11/24 20:50 Completed ECG Data Tracing #1: ECG Narrative: Independently interpreted by me rate is 95, rhythm is regular, axis is normal, no ST elevation in anatomical contiguous leads, QTc 406.
--- NOTE | 2024-07-11 20:50 | XR_ITS ---
PROCEDURE INFORMATION: Exam: XR Chest Exam date and time: 07/11/2024 8:50 PM Age: 29 years old Clinical indication: Dyspnea; Additional info: Chest pain TECHNIQUE: Imaging protocol: Radiologic exam of the chest. Views: 2 views. COMPARISON: CR XR CHEST PORTABLE 04/10/2024 7:39 PM FINDINGS: Lungs: Unremarkable. No consolidation. Pleural spaces: Unremarkable. No pleural effusion. No pneumothorax. Heart/Mediastinum: Unremarkable. No cardiomegaly. Bones/joints: Unremarkable. IMPRESSION: No acute findings.
[2024-07-11 21:15] LABS: Basophils # 0.1 K/mm3 (0-0.2); Basophils % 0.8 % (0.1-2.0); Eosinophils # 0.2 Kmm3 (0.0-0.4); Eosinophils % 2.1 % (0.1-12.0); Hematocrit 40.6 % (42.0-52.0); Hemoglobin 13.6 g/dL (14.1-18.0); Immature Granulocytes # 0.09 10^3uL; Immature Granulocytes % 0.9 %; Lymphocytes # 3.1 K/mm3 (0.7-4.5); Lymphocytes % 30.1 % (10-50); Mean Corpuscular HGB Conc 33.5 g/dL (31.8-35.4); Mean Corpuscular Hemoglobin 30.2 pg (27.0-31.2); Mean Corpuscular Volume 90.2 fl (80-94); Mean Platelet Volume 11.4 fl (7.4-10.4); Monocytes # 0.9 K/mm3 (0.1-1.0); Neutrophils # 5.9 K/mm3 (1.8-7.8); Neutrophils % 57.1 % (37.0-80.0); Nucleated Red Blood Cells # 0 10^3/uL; Nucleated Red Blood Cells % 0 %; Platelet Count 203 K/mm3 (142-424); Red Cell Distribution Width 12.4 % (11.5-17.5); Red Cell Distribution Width-SD 40.8 fL; White Blood Count 10.3 K/mm3 (4.8-10.8)
[2024-07-11 21:19] LABS: Alanine Aminotransferase 27 U/L (12-78); Albumin Level 4.5 g/dl (3.5-5.0); Alkaline Phosphatase 61 U/L (38-126); Anion Gap 10.8 mEq/L (5-15); Aspartate Amino Transferase 36 U/L (17-59); Bilirubin,Total 0.4 mg/dl (0.2-1.3); Blood Urea Nitrogen 11 mg/dl (9-20); Carbon Dioxide 26 mmol/L (22.0-30.0); Chloride 105 mmol/L (98-107); Creatinine Clearance Estimated 172 mL/min (50-200); Estimated Glomerular Filt Rate 115 ml/min (>60); GFR (African American) 139 ML/MIN (>60); Globulin 2.3 g/dL (1.3-3.2); Glucose 108 mg/dl (74-100); Potassium 3.8 mmoL/L (3.5-5.1); Sodium 138 mmol/L (136-145); Total Protein,Serum 6.8 g/dl (6.3-8.2)
[2024-07-11 21:21] LABS: INR 0.92 (0.9-1.1); Prothrombin Time 10.3 seconds (10.1-12.5)
[2024-07-11 21:30] VITALS: BP 138/74; PULSE 81; RESP 20; O2SAT 96
[2024-07-11 21:32] LABS: NT Pro Brain Natriuretic Pep. 45.6 pg/mL (0-125)
[2024-07-11 21:33] LABS: D-Dimer 0.45 ug/mL (0.0-0.5)
[2024-07-11] MEDS: ACETAMINOPHEN 500MG TAB 1000 MG PO (21:35)
[2024-07-11] MEDS: KETOROLAC 30MG/ML VIAL 15 MG IV (21:35)
[2024-07-11 21:36] LABS: Lactate Venous 1.9 mmol/L (0.4-2.0); VBG Base Excess 0.2 mmol/L (-2.4-2.3); VBG HCO3 25.3 mmol/L (23-30); VBG Oxygen Saturation 90.3 % (50-70); VBG PCO2 43.1 mmol/L (35-51); VBG PH 7.39 mmol/L (7.31-7.41); VBG PO2 56.2 mmol/L (28-40); VBG Total CO2 26.6 mmol/L (23-27)
[2024-07-11 21:37] LABS: Procalcitonin 0.039 ng/mL (0.0-2.0)
[2024-07-11 21:38] LABS: Troponin I < 0.01 ng/ml (0.00-0.034)
[2024-07-11 21:47] LABS: Lactic Acid 1.3 mmol/L (0.7-2.1)
[2024-07-11 21:54] VITALS: BP 138/74; PULSE 72; RESP 20; TEMP 36.7; O2SAT 98
--- NOTE | 2024-07-12 23:51 | PC.NURSE ---
Lab called with blood culture results. MD Poole aware.
== END 2024-07-11 22:06 | disposition home or self-care (01) ==
PROVIDERS: Physician Assistant; Emergency Provider Emergency Medicine
DX: R07.9 Chest pain, unspecified (principal)
CPT/HCPCS: 71046; 80053; 82803; 83605; 83880; 84145; 84484; 85025; 85378; 85610; 87040; 87077; 87186; 93005; 96374; 99285; J1885